=== PATIENT | female | born 1975 | race Caucasian/White ===

== ENCOUNTER 2024-10-13 08:12 | Emergency (ER) | payer OTHER, SELFPAY ==
[2024-10-13 08:14] VITALS: BP 128/79
--- NOTE | 2024-10-13 08:46 | ED.GENMED ---
History of Present Illness
General
Chief Complaint: Cold/Flu/URI Symptoms
Source: patient
Exam Limitations: none
Time Seen by Provider: 10/13/24 08:28
Nursing documentation reviewed up to this point in time: agreed with
History of Present Illness
History of Present Illness:
The patient is a pleasant 49-year-old female who reports at least 1 week of cough, body aches, intermittent low-grade fever, fatigue, and nausea. Patient reports that she vomited 1-2 times but has not vomited in several days. Additionally she
reports mild nonbloody diarrhea. She denies abdominal pain. Patient reports what concerned her was her labored breathing, which she reports feels like it is getting worse. Patient reports occasionally she feels herself wheezing. She reports that
multiple family members have the flu but they all seem to be getting better and she is not getting better. Patient also feels slightly lightheaded.
Past History
Past History
ED Past Medical History: Hypothyroidism and Psychiatric (Depression)
ED Past Surgical History: Cholecystectomy
Social History
Tobacco: Smoker
Alcohol: None
Drug: None
Personal:
Living: with family
Employment: Other
Family History
Family History: Hypertension
Review of Systems
Review of Systems
Allergies reviewed?: Yes
All Other Systems: ROS reviewed and negative except as documented in HPI and ROS
Constitutional: Reports fever, fatigue and chills
EENT: Reports no symptoms
Respiratory: Reports cough and trouble breathing
Cardiac: Reports no symptoms
ABD/GI: Reports nausea, vomiting, diarrhea and anorexia
: Reports no symptoms
Musculoskeletal: Reports muscle pain
Skin: Reports no symptoms
Neurological: Reports no symptoms
Endocrine: Reports no symptoms
Hematologic/Lymphatic: Reports no symptoms
Psychiatric: Reports no symptoms
Phy Exam
Physical Exam
Physical Exam:
Physical Exam
General: no apparent distress, not acutely ill
Neck: supple. no meningeal signs. No pharyngeal erythema or exudate. Dry mucous membrane
Heart: s1/s2 regular rate and rhythm, no murmur. equal radial pulses.
Lungs: Mild tachypnea with speaking. Bilateral rhonchi. No crackles heard or wheezing
Abdomen: normal bowel sounds. not tender. no CVAT
Neuro: alert and oriented. no focal neurological deficits
Skin: no rash
Psychiatric: well kept. interactive and cooperative
Extremities: no edema. no calf tenderness. negative homans. good distal pulses
Course
Orders/Labs/Results
Orders:
Orders
10/13/24 08:17
COVID-19 Antigen Urgent
Source: Nasal Swab
Influenza A+B Rapid Molecular Urgent
CANDIDO Source: Nasal Swab
Specimen Description:
10/13/24 08:45
0.9% Sodium Chloride 1000 ml [Nss] 1,000 ml IV BOLUS
10/13/24 08:46
Ipratropium/Albuterol Sulfate [Duoneb] 3 ml INH R NOW ONE
CR Chest - 2 Views Urgent
Comment:
Reason For Exam: SOB
10/13/24 08:49
Basic Metabolic Panel Urgent
Complete Blood Count/With Diff Urgent
10/13/24 09:06
Add On- LAB Urgent
Tests Added?: monotest
10/13/24 09:33
Monotest Urgent
10/13/24 10:34
Prednisone [Deltasone] 40 mg PO NOW STA
10/13/24 11:49
Azithromycin [Zithromax] 500 mg PO NOW STA
Abnormal Lab Results
10/13/24
08:49
WBC 15.0 H 10^3/uL
(4.8-10.8)
Abs Immat Gran (auto) 0.1 H 10^3/uL
(0-0.05)
Absolute Neuts (auto) 12.5 H 10^3/uL
(1.4-6.5)
Absolute Monos (auto) 0.8 H 10^3/uL
(0.1-0.6)
Neutrophils % 83.4 H %
(42.2-75.2)
Lymphocytes % 10.5 L %
(20.5-51.1)
Chloride 108 H mmol/L
(98-107)
Carbon Dioxide 19 L mmol/L
(22-30)
BUN 4 L mg/dl
(7-17)
Glucose 111 H mg/dl
(70-99)
10/13/24 08:49
10/13/24 08:49
Vital Signs
Initial and Last Documented VS:
Initial Vital Signs
Temp Pulse Resp BP Pulse Ox
98.9 F 72 16 128/79 100
10/13/24 08:14 10/13/24 08:14 10/13/24 08:14 10/13/24 08:14 10/13/24 08:14
Last Documented Vital Signs
Temp Pulse Resp BP Pulse Ox
98.9 F 55 16 119/74 100
10/13/24 08:14 10/13/24 10:15 10/13/24 10:15 10/13/24 10:15 10/13/24 10:15
MDM/Problems Addressed
Differential Diagnosis Includes:
Acute viral illness such as influenza, pneumonia, PE
MDM/Problems Addressed:
Patient presents with acute fatigue, cough and shortness of breath
Chronic conditions affecting care:
Given patient has a history of smoking, she is at increased risk of lung disease such as pneumonia
Acute Exacerbation and/or Progression of Chronic Illness: HTN (Patient is acutely hypertensive, likely due to not feeling well and shortness of breath)
*Radiology
Radiology exam reviewed: preliminary read by ED provider (Chest x-ray reviewed by me. No acute disease) and radiology read reviewed
*Pulse Oximetry
Patient hypoxic: no
*EKG
Interpreted by ED Provider?: NA
*On Line Csr Interpretation
Rate: On Line Csr- N/A
*Critical Care Note
Total Time (30-74mins, 75-104mins- exclusive of procedures): Not Applicable
Data Reviewed
Source: patient
Update Note
Update Note:
11:30 AM patient feels better after DuoNeb. Given patient is a daily smoker for many years and has increased cough productive of mucus, decision made to start azithromycin and prednisone.
ED Attending Note
-
Portions of this chart may have been created with voice recognition software.� Occasional wrong word or��sound alike� substitutions may have occurred due to the inherent limitations of voice recognition software.
Discharge Plan
Departure
Patient Disposition: Home (Routine Discharge)
Date of Disposition: 10/13/24
Time of Disposition: 11:44
Patient with high blood pressure during this ER visit?: No
Condition: Good
Covid-19: Negative COVID-19
Discharge Problem:
Acute bronchitis
Instructions: Acute Bronchitis, Adult (DC)
Prescriptions:
New
prednisone 10 mg tablet
10 mg PO DIRECTED 7 Days Qty: 16 0RF
Rx Instructions:
Take 40 mg on day 1
Take 30 mg on day 2 and 3
Take 20 mg on day 4 and 5
Take 10 mg on day 6 and 7
azithromycin [Zithromax] 250 mg tablet
250 mg PO DAILY Qty: 4 0RF
albuterol sulfate 90 mcg/actuation aerosol powdr breath activated
1 inh inhalation Q4H PRN (Reason: shortness of breath or wheezing) Qty: 1 0RF
No Action
zolpidem 10 MG tablet
10 mg PO HS PRN (Reason: insomnia)
levothyroxine 200 MCG tablet
200 mcg PO DAILY
multivitamin [Daily Multiple] 1 EACH tablet
1 ea PO DAILY
quetiapine 100 MG tablet
400 mg PO HS
nortriptyline 50 MG capsule
150 mg PO BID
pantoprazole 40 MG tablet,delayed release (DR/EC)
40 mg PO BID Qty: 14 0RF
cyanocobalamin (vitamin B-12) 1,000 MCG tablet
1,000 mcg PO DAILY Qty: 30 0RF
Referrals:
UNKNOWN - PT NOT,INTERVIEWE [Family Provider] -
Interventions
Interventions:
*Risk Screen - Suicide Last Done: 10/13/24 08:15
*General Assessment Last Done: 10/13/24 09:03
*Neglect/Abuse Screening Last Done: 10/13/24 08:15
ED- Pulmonary Assessment Last Done: 10/13/24 09:03
Discharge Date and Time
Print Language: EMIRATI
[2024-10-13 08:47] LABS: COVID-19 Antigen Negative (Negative)
[2024-10-13] MEDS: DUONEB 3 ML INH (08:58)
[2024-10-13] MEDS: NSS 1000 IV (08:58)
[2024-10-13 09:06] LABS: % Basophils 0.3 % (0-2); % Eosinophils 0.1 % (0-6); % Immature Granulocytes 0.4 % (0-0.5); % Lymphocytes 10.5 % (20.5-51.1); % Monocytes 5.3 % (1.7-9.3); % Neutrophils 83.4 % (42.2-75.2); Absolute Basophils 0.1 10^3/uL (0-0.2); Absolute Immature Granulocytes 0.1 10^3/uL (0-0.05); Absolute Lymphocytes 1.6 10^3/uL (1.2-3.4); Absolute Monocytes 0.8 10^3/uL (0.1-0.6); Absolute Neutrophils 12.5 10^3/uL (1.4-6.5); Hematocrit 40.7 % (37.0-47.0); Hemoglobin 14.1 g/dL (12.0-16.0); Mean Corp Hgb Conc. 34.6 g/dL (33.0-37.0); Mean Corpuscular Hgb 29.9 pg (27.0-31.0); Mean Corpuscular Volume 86.4 fL (81.0-99.0); Mean Platelet Volume 10.4 fL (7.4-10.4); Nucleated Red Blood Cells % 0 %; Platelet Count 363 10^3/uL (130-400); Red Blood Cell Count 4.71 10^6/uL (4.20-5.40); Red Cell Dist. Width 13.7 % (11.5-14.5)
[2024-10-13 09:43] LABS: Blood Urea Nitrogen 4 mg/dl (7-17); Calcium 9.1 mg/dl (8.4-10.2); Carbon Dioxide 19 mmol/L (22-30); Chloride 108 mmol/L (98-107); Glucose 111 mg/dl (70-99); Sodium 137 mmol/L (135-145); eGFR > 60.00
[2024-10-13 10:00] LABS: Monotest Negative (Negative)
[2024-10-13 10:15] VITALS: BP 119/74
[2024-10-13] MEDS: DELTASONE 40 MG PO (10:48)
[2024-10-13] MEDS: ZITHROMAX 500 MG PO (12:00)
== END 2024-10-13 12:45 | disposition home or self-care (01) ==
LOC: EMR 08:12
PROVIDERS: Emergency Medicine; EMERGENCY PHYSICIAN Emergency Medicine
DX: J20.9 Acute bronchitis, unspecified (principal); Z11.52 Encounter for screening for COVID-19; F17.200 Nicotine dependence, unspecified, uncomplicated
CPT/HCPCS: 99284; 96360; 94640; 71046; 80048; 85025; 86308; 87502; 87811

== ENCOUNTER 2025-02-20 08:02 | Emergency (ER) | payer OTHER, SELFPAY ==
[2025-02-20 08:10] VITALS: BP 125/65
--- NOTE | 2025-02-20 09:08 | ED.MUSCINJ ---
HPI-Injury
General
Chief Complaint: Fall
Source: patient
Exam Limitations: none
Time Seen by Provider: 02/20/25 08:56
History of Present Illness-Injury
Initial Injury comments:
49-year-old female presents 2 days after a fall she sustained. She slipped on the wet sidewalk and fell twisting both ankles while she did this and landed on her right hand. She complains of right wrist pain and bilateral ankle pain. She hit her
head. There is a small bump initially which has since resolved. There is no loss of conscious. She is not anticoagulated. She denies a headache or vision change. No neck pain.
Past History
Past History
ED Past Medical History: Hypothyroidism and Psychiatric (Depression)
ED Past Surgical History: Cholecystectomy
Social History
Tobacco: Smoker
Alcohol: None
Drug: None
Personal:
Living: with family
Employment: Other
Family History
Family History: Hypertension
Phy Exam
Physical Exam
Physical Exam:
General: Well-appearing female no acute respiratory distress
HEENT normocephalic atraumatic pupils equal round reactive to light
Musculoskeletal exam: The spine is nontender. The right wrist is diffusely tender ecchymosis over the volar aspect. Bilateral ankles are tender and slightly swollen laterally.
Neurologic: Alert and oriented
Injury Course
Orders/Labs/Results
Orders:
Orders
02/20/25 09:07
CR Ankle - Left Min 3 Views Urgent
Comment:
Reason For Exam: fall
CR Ankle - Right Min 3 Views * Urgent
Comment:
Reason For Exam: fall
CR Wrist - Right Min 3 Views Urgent
Comment:
Reason For Exam: pain after fall
02/20/25 10:57
Townsend Wrist Right-Tx ONCE
MDM/Problems Addressed
Differential Diagnosis Includes:
Mechanical fall with right wrist pain and bilateral ankle pain. Consider sprain versus fracture. There was a head strike but no sign of scalp hematoma neurologically intact no loss of conscious. No indication for imaging of the head
X-rays right wrist and bilateral ankles pending
*Pulse Oximetry
SaO2: 98
Oxygen Mode of Delivery: Room air
Patient hypoxic: no
*Critical Care Note
Total Time (30-74mins, 75-104mins- exclusive of procedures): Not Applicable
Update Note
Update Note:
X-rays both ankles and right wrist negative for acute fracture. Suspect sprain to the right wrist. Will apply Velcro wrist splint. Recommend ibuprofen and Tylenol for pain. Stable for discharge
ED Attending Note
-
Portions of this chart may have been created with voice recognition software.� Occasional wrong word or��sound alike� substitutions may have occurred due to the inherent limitations of voice recognition software.
Discharge Plan
Departure
Patient Disposition: Home (Routine Discharge)
Date of Disposition: 02/20/25
Time of Disposition: 10:59
Patient with high blood pressure during this ER visit?: No
Discharge Problem:
Right wrist sprain
Instructions: Muscle, joint, and bone pain - Discharge instructions
Prescriptions:
New
meloxicam 7.5 mg tablet
7.5 mg PO BID Qty: 14 0RF
No Action
zolpidem 10 MG tablet
10 mg PO HS PRN (Reason: insomnia)
levothyroxine 200 MCG tablet
200 mcg PO DAILY
multivitamin [Daily Multiple] 1 EACH tablet
1 ea PO DAILY
quetiapine 100 MG tablet
400 mg PO HS
nortriptyline 50 MG capsule
150 mg PO BID
pantoprazole 40 MG tablet,delayed release (DR/EC)
40 mg PO BID Qty: 14 0RF
cyanocobalamin (vitamin B-12) 1,000 MCG tablet
1,000 mcg PO DAILY Qty: 30 0RF
prednisone 10 mg tablet
10 mg PO DIRECTED 7 Days Qty: 16 0RF
Rx Instructions:
Take 40 mg on day 1
Take 30 mg on day 2 and 3
Take 20 mg on day 4 and 5
Take 10 mg on day 6 and 7
azithromycin [Zithromax] 250 mg tablet
250 mg PO DAILY Qty: 4 0RF
albuterol sulfate 90 mcg/actuation aerosol powdr breath activated
1 inh inhalation Q4H PRN (Reason: shortness of breath or wheezing) Qty: 1 0RF
Referrals:
Allyson Cain DO [Family Provider, Family Practice]
Activity Restrictions/Additional Instructions:
Use brace for support. Take anti-inflammatories as directed. Return if needed otherwise follow-up with your doctor
Interventions
Interventions:
*Risk Screen - Suicide Last Done: 02/20/25 08:54
*General Assessment Last Done: 02/20/25 08:54
*Neglect/Abuse Screening Last Done: 02/20/25 08:54
*ED- Fall Risk Assessment Last Done: 02/20/25 08:54
*ED COVID-19 Vaccine History Last Done: 02/20/25 08:54
ED-Musculoskeletal Assessment Last Done: 02/20/25 08:54
ED- Neurological Assessment Last Done: 02/20/25 08:54
ED-Skin Assessment Last Done: 02/20/25 08:54
Discharge Date and Time
Print Language: BURMESE
[2025-02-20 11:10] VITALS: BP 99/69
== END 2025-02-20 11:28 | disposition home or self-care (01) ==
LOC: EMR 08:02
PROVIDERS: EMERGENCY PHYSICIAN Student in an Organized Health Care Education/Training Program; FAMILY PHYSICIAN Family Medicine
DX: S63.501A Unspecified sprain of right wrist, initial encounter (principal); S99.911A Unspecified injury of right ankle, initial encounter; S99.912A Unspecified injury of left ankle, initial encounter; W01.0XXA Fall on same level from slipping, tripping and stumbling without subsequent striking against object, initial encounter; E03.9 Hypothyroidism, unspecified; F32.A Depression, unspecified; F17.200 Nicotine dependence, unspecified, uncomplicated; Z82.49 Family history of ischemic heart disease and other diseases of the circulatory system; Z90.49 Acquired absence of other specified parts of digestive tract
CPT/HCPCS: 99283; 73110; 73610

== ENCOUNTER 2025-02-28 09:00 | Emergency (ER) | payer OTHER, SELFPAY ==
[2025-02-28 09:02] VITALS: BP 112/76
--- NOTE | 2025-02-28 09:27 | ED.GENMED ---
History of Present Illness
General
Chief Complaint: Musculo-Skeletal Complaint
Source: patient
Time Seen by Provider: 02/28/25 09:20
History of Present Illness
History of Present Illness:
49-year presents the emergency room complaining of pain in the top of her left foot. Patient fell couple weeks ago and injured both her right wrist and both ankles in the fall. She was seen here on February 21 and had imaging of both ankles and her
right wrist which showed no fracture. The patient states she was following her instructions and her ankles were improving until last night when she developed sharp pain in the top of her left foot. The pain seems to come in waves. Movement of the
foot does seem to make it worse. She does not recall any new injuries. She has not been doing increased activity such as running. She is taken some Tylenol and ibuprofen for the discomfort.
Past History
Past History
ED Past Medical History: Hypothyroidism and Psychiatric (Depression)
ED Past Surgical History: Cholecystectomy
Social History
Tobacco: Smoker
Alcohol: None
Drug: None
Personal:
Living: with family
Employment: Other
Family History
Family History: Hypertension
Phy Exam
Physical Exam
Physical Exam:
General: Awake, Alert, Oriented X3. No acute distress.
Vitals: unremarkable
Head: Atraumatic
Eyes: Pupils equal, EOMI
Neuro: Grossly nonfocal
Skin: Warm, dry, no rash
Extremities: pulses equal b/l, no edema. Left foot shows no swelling, color changes, ecchymosis or rash. Tenderness exists in the proximal foot. No masses or any unusual structures on palpation. Pulses are intact. Cap refill is brisk.
Course
Orders/Labs/Results
Orders:
Orders
02/28/25 09:30
Foot, Left 3 View [CR Foot - Left Min 3 Views] Urgent
Comment:
Reason For Exam: foot pain
US Legs, Left [US Periph Venous LOWER Ext LT] Urgent
Comment:
Reason For Exam: left foot/lower leg pain
02/28/25 09:31
Ibuprofen [Motrin] 600 mg PO NOW STA
02/28/25 12:15
Acetaminophen [Tylenol] 1,000 mg PO NOW STA
02/28/25 12:18
Kayden Wrap Left-Treatment ONCE
Vital Signs
Initial and Last Documented VS:
Initial Vital Signs
Temp Pulse Resp BP Pulse Ox
98 F 96 16 112/76 100
02/28/25 09:02 02/28/25 09:02 02/28/25 09:02 02/28/25 09:02 02/28/25 09:02
Last Documented Vital Signs
Temp Pulse Resp BP Pulse Ox
98 F 96 16 112/76 100
02/28/25 09:02 02/28/25 09:02 02/28/25 09:02 02/28/25 09:02 02/28/25 09:30
MDM/Problems Addressed
Differential Diagnosis Includes:
Tendinitis, ankle sprain, DVT
MDM/Problems Addressed:
Patient's imaging is unremarkable including it DVT study. Physical exam does not suggest any significant pathology. Suspect the patient either continually have pain from the injury or maybe developed a bit of a tendinitis because of change in her
gait. Continue Tylenol and ibuprofen. Patient requested stronger pain medicine but given her negative imaging study and physical exam I do not believe opiate analgesia is appropriate. She can follow-up with her primary care provider.
*Radiology
Radiology exam reviewed: radiology read reviewed
*Pulse Oximetry
SaO2: 100
Oxygen Mode of Delivery: Room air
Patient hypoxic: no
*Critical Care Note
Total Time (30-74mins, 75-104mins- exclusive of procedures): Not Applicable
ED Attending Note
-
Portions of this chart may have been created with voice recognition software.� Occasional wrong word or��sound alike� substitutions may have occurred due to the inherent limitations of voice recognition software.
Discharge Plan
Departure
Patient Disposition: Home (Routine Discharge)
Date of Disposition: 02/28/25
Time of Disposition: 12:15
Patient with high blood pressure during this ER visit?: No
Condition: Good
Discharge Problem:
Ankle pain, left, Strain of ankle, left
Instructions: Sprain (DC)
Prescriptions:
No Action
zolpidem 10 MG tablet
10 mg PO HS PRN (Reason: insomnia)
levothyroxine 200 MCG tablet
200 mcg PO DAILY
multivitamin [Daily Multiple] 1 EACH tablet
1 ea PO DAILY
quetiapine 100 MG tablet
400 mg PO HS
nortriptyline 50 MG capsule
150 mg PO BID
pantoprazole 40 MG tablet,delayed release (DR/EC)
40 mg PO BID Qty: 14 0RF
cyanocobalamin (vitamin B-12) 1,000 MCG tablet
1,000 mcg PO DAILY Qty: 30 0RF
prednisone 10 mg tablet
10 mg PO DIRECTED 7 Days Qty: 16 0RF
Rx Instructions:
Take 40 mg on day 1
Take 30 mg on day 2 and 3
Take 20 mg on day 4 and 5
Take 10 mg on day 6 and 7
azithromycin [Zithromax] 250 mg tablet
250 mg PO DAILY Qty: 4 0RF
albuterol sulfate 90 mcg/actuation aerosol powdr breath activated
1 inh inhalation Q4H PRN (Reason: shortness of breath or wheezing) Qty: 1 0RF
meloxicam 7.5 mg tablet
7.5 mg PO BID Qty: 14 0RF
Referrals:
Jacek Landeros MD [Active, Orthopedics]
Allyson Cain DO [Family Provider, Family Practice]
Interventions
Interventions:
*Risk Screen - Suicide Last Done: 02/28/25 09:04
*General Assessment Last Done: 02/28/25 12:28
*Neglect/Abuse Screening Last Done: 02/28/25 09:04
*ED COVID-19 Vaccine History Last Done: 02/28/25 12:28
*Nursing Disposition Last Done: 02/28/25 12:34
ED-Musculoskeletal Assessment Last Done: 02/28/25 12:28
Discharge Date and Time
Discharge Date/Time: 02/28/25 12:35
Print Language: BENGALI
[2025-02-28] MEDS: MOTRIN 600 MG PO (09:40)
== END 2025-02-28 12:35 | disposition home or self-care (01) ==
LOC: EMR 09:00
PROVIDERS: EMERGENCY PHYSICIAN Emergency Medicine; FAMILY PHYSICIAN Family Medicine
DX: S96.912A Strain of unspecified muscle and tendon at ankle and foot level, left foot, initial encounter (principal); M25.572 Pain in left ankle and joints of left foot; M79.605 Pain in left leg; W19.XXXA Unspecified fall, initial encounter; E03.9 Hypothyroidism, unspecified; F32.A Depression, unspecified; F17.200 Nicotine dependence, unspecified, uncomplicated; Z90.49 Acquired absence of other specified parts of digestive tract; Z88.2 Allergy status to sulfonamides; Z88.8 Allergy status to other drugs, medicaments and biological substances
CPT/HCPCS: 99284; 73630; 93971

== ENCOUNTER 2025-06-20 08:32 | Emergency (ER) | payer OTHER, SELFPAY ==
[2025-06-20 08:35] VITALS: BP 114/72
[2025-06-20 08:56] VITALS: BMI 26.0
[2025-06-20 09:02] VITALS: BP 112/67
[2025-06-20 09:28] LABS: Hematocrit 37.9 % (37.0-47.0); Hemoglobin 12.3 g/dL (12.0-16.0); Mean Corp Hgb Conc. 32.5 g/dL (33.0-37.0); Mean Corpuscular Volume 93.6 fL (81.0-99.0); Nucleated Red Blood Cells % 0 %; Platelet Count 280 10^3/uL (130-400); Red Cell Dist. Width 14.3 % (11.5-14.5)
[2025-06-20] MEDS: NSS 1000 IV (09:28)
[2025-06-20] MEDS: TORADOL 15 MG IV (09:35)
[2025-06-20 09:56] LABS: Troponin I 0.018 ng/ml
[2025-06-20 10:00] VITALS: BP 110/75
[2025-06-20 10:28] LABS: Blood Urea Nitrogen 7 mg/dl (7-17); Calcium 7.5 mg/dl (8.4-10.2); Carbon Dioxide 21 mmol/L (22-30); Chloride 115 mmol/L (98-107); Estimated Creatinine Clearance > 125 ml/min; Glucose 64 mg/dl (70-99); Sodium 135 mmol/L (135-145); eGFR > 60.00
[2025-06-20 11:00] VITALS: BP 115/79
--- NOTE | 2025-06-20 11:40 | ED.GENMED ---
History of Present Illness
General
Chief Complaint: Chest Pain
Source: patient
Time Seen by Provider: 06/20/25 08:45
History of Present Illness
History of Present Illness:
See MDM
Past History
Past History
ED Past Medical History: Hypothyroidism and Psychiatric (Depression)
ED Past Surgical History: Cholecystectomy
Social History
Tobacco: Smoker
Alcohol: None
Drug: None
Personal:
Living: with family
Employment: Other
Family History
Family History: Hypertension
Phy Exam
Physical Exam
Physical Exam:
See MDM
Scores
Heart Score for Chest Pain Patients
STEMI patient?: No
History: Slightly or Non-Suspicious
ECG: Normal
Age: >45 - <65 years
Risk Factors: No Risk Factors
Troponin: </= Normal Limit
Heart Score for Chest Pain Patients: 1
Heart Score Risk: 2.5% MACE over next 6 weeks
Course
Orders/Labs/Results
Orders:
Orders
06/20/25 08:34
Electrocardiogram (*1) Urgent
Reason for Study: Chest Pain
EKG- Treatment ONCE
06/20/25 08:52
0.9% Sodium Chloride 1000 ml [Nss] 1,000 ml IV BOLUS
CR Chest - 2 Views Urgent
Comment:
Reason For Exam: chest pain
06/20/25 09:01
Complete Blood Count/With Diff Urgent
Free T4 Urgent
TSH Reflex To Free T4 Urgent
Troponin I Urgent
06/20/25 09:31
Ketorolac [Toradol] 15 mg IV NOW STA
06/20/25 09:58
Basic Metabolic Panel Urgent
Abnormal Lab Results
06/20/25 06/20/25
09:01 09:58
RBC 4.05 L 10^6/uL
(4.20-5.40)
MCHC 32.5 L g/dL
(33.0-37.0)
MPV 11.3 H fL
(7.4-10.4)
Chloride 115 H mmol/L
(98-107)
Carbon Dioxide 21 L mmol/L
(22-30)
Glucose 64 L mg/dl
(70-99)
Calcium 7.5 L mg/dl
(8.4-10.2)
TSH (Reflex) 21.50 H uIU/ml
(0.47-4.68)
Free T4 0.47 L ng/dl
(0.78-2.19)
06/20/25 09:01
06/20/25 09:58
Vital Signs
Initial and Last Documented VS:
Initial Vital Signs
Temp Pulse Resp BP Pulse Ox
98.0 F 60 18 114/72 99
06/20/25 08:35 06/20/25 08:35 06/20/25 08:35 06/20/25 08:35 06/20/25 08:35
Last Documented Vital Signs
Temp Pulse Resp BP Pulse Ox
98.0 F 47 14 115/79 100
06/20/25 08:35 06/20/25 11:15 06/20/25 11:15 06/20/25 11:00 06/20/25 11:15
MDM/Problems Addressed
Differential Diagnosis Includes:
Note:
CHIEF COMPLAINT(S)
Chest pain
HISTORY OF PRESENT ILLNESS
The patient is a 50-year-old female who presented with chest discomfort. She described the pain as pressure-like, stating it felt like 'somebody sitting on it,' localized in the middle of the chest and radiating up both arms. She reported the
symptoms began a couple of days ago but denied any recent travel or history of clot formation. The patient did not experience increased pain with walking or deep breaths, and she noted no leg swelling or pain. Additionally, the patient mentioned
having a known hiatal hernia and expressed having jaw tightness and difficulties when swallowing. The patient also stated she is allergic to thyroid medications and that vitamin D levels are not an acute concern in this context.
PHYSICAL EXAM
General: Alert, no acute distress.
Skin: Warm, dry.
Head: Normocephalic, atraumatic
Neck: Appears supple, trachea midline.
Eyes, Ears, Nose, Mouth, and Throat: Moist mucous membranes
Cardiovascular: No signs of cyanosis. Regular rate and rhythm
Respiratory: Respirations are non-labored. Lungs clear
Abdomen: Non-distended
Musculoskeletal: No deformities. No leg edema
Neurological: No focal neurological deficit observed.
Psychiatric: Cooperative, appropriate mood and affect.
ELECTROCARDIOGRAM (EKG)
My independent EKG interpretation is normal findings with no abnormalities detected.
PLAN
- Conduct blood work to rule out cardiac causes and check electrolytes.
- Conduct a chest x-ray to ensure no other underlying conditions.
- Administer intravenous fluids for dehydration.
- Administer a dose of 1 mg of hydromorphone, as previous morphine administration was ineffective.
DIFFERENTIAL DIAGNOSIS
The Differential Diagnosis includes, in no particular order and is not limited to:
- Cardiac ischemia
- Gastroesophageal reflux disease (GERD)
- Musculoskeletal chest pain
- Panic attack or anxiety-related symptoms
- Costochondritis
- Pulmonary embolism
- Aortic dissection
- Pneumonia
- Pericarditis
- Hiatal hernia exacerbation
SUMMARY OF ENCOUNTER
The patient presented to the emergency department with pressure-like chest pain radiating to the arms. EKG was interpreted as normal. To rule out any cardiac-related issues, further tests such as blood work and chest x-ray were planned. Due to
insufficient relief from morphine, a dose of hydromorphone was administered for pain management, and intravenous fluids were provided to address mild dehydration.
EMERGENCY TREATMENTS ADMINISTERED
A dose of 1 mg of hydromorphone intravenous for pain relief.
MEDICATION RECONCILIATION
- Hydromorphone 1 mg intravenous administered due to ineffective pain control with morphine.
MEDICAL DECISION MAKING
-Complexity of Data Reviewed: Chronic conditions affecting care: Hiatal hernia.
-Data:
Category 1:
EKG independently interpreted, revealing normal results.
Category 3:
Overall management and test interpretation guided by presenting symptoms, with the administration of intravenous fluids and pain medication.
-Risk:
Consideration of Admission/Observation: Escalation of care including admission/observation was considered given the complexity and risk of the patients presenting complaint, exam findings, and/or their underlying comorbidities. However, ultimately I
feel the patient is safe for outpatient management with close follow-up. Reasoning: Work-up reassuring, does not reveal any acute life/organ threatening processes, patients symptoms well controlled upon reevaluation, reexamination is reassuring,
vitals are stable, patient agreeable with discharge, reliable for follow-up.
DIAGNOSIS
- Hiatal Hernia (ICD-10: K44.9)
- Chest Pain, unspecified (ICD-10: R07.9)
EKG
My independent EKG interpretation is:
- Rhythm: Sinus bradycardia
- Heart Rate: 57 beats per minute
- [place]: Normal
- Abnormalities: No ST segment elevation noted
SUMMARY OF ENCOUNTER
The patient presented with chest discomfort. An EKG was performed, showing no ischemic changes, and a troponin test was negative. These results, combined with the duration of symptoms, reduced the suspicion of acute coronary syndrome. Laboratory
tests revealed some abnormalities, including low T3, mild hypoglycemia, and mildly low calcium levels. The importance of following up on these results with her primary care physician, who manages her hypothyroidism, was discussed. The patient
declined food in the emergency department, preferring to wait until she returned home. Recommendations for uhsy-aeo-spevkox calcium supplements were also discussed.
PLAN
The patient was advised to follow up with her primary care physician for further evaluation and management of her thyroid condition and to discuss the lab results.
INDEPENDENT REVIEW OF LABS AND INTERPRETATION OF TESTS
My independent review of the laboratory results indicated low T3, mild hypoglycemia, and mildly low calcium levels.
PATIENT EDUCATION AND COUNSELING
Patient was educated on the importance of discussing lab abnormalities with her primary care provider, especially in relation to her hypothyroidism management. Discussed the potential benefit of ubnr-wfr-kyrnagu calcium supplements.
FOLLOW-UP INSTRUCTIONS
Patient advised to schedule a follow-up visit with her primary care physician to address thyroid management and review lab results.
MEDICATION RECONCILIATION
Klat-doi-yxvffra calcium supplements were recommended to the patient.
MEDICAL DECISION MAKING
-Complexity of Data Reviewed: Chronic conditions affecting care include the patients known hypothyroidism. Differential diagnoses considered include cardiac ischemia, gastroesophageal reflux disease (GERD), and a hiatal hernia exacerbation.
-Data:
Category 1
My independent interpretation of EKG indicates no ischemic changes.
My independent review of lab tests showed low T3, mild hypoglycemia, and mildly low calcium.
-Discussion of lab results with the patient regarding abnormalities.
-Risk: Consideration of Admission/Observation: Escalation of care, including admission/observation, was considered, but ultimately, the patient is deemed safe for outpatient management with close follow-up. Work-up does not reveal any acute
life-threatening processes, symptoms are well controlled upon reevaluation, and the patient is stable and agreeable with discharge.
DIAGNOSIS
- Hypothyroidism (ICD-10: E03.9)
- Chest Pain, unspecified (ICD-10: R07.9)
*Pulse Oximetry
SaO2: 100
Oxygen Mode of Delivery: Room air
Patient hypoxic: no
*Critical Care Note
Total Time (30-74mins, 75-104mins- exclusive of procedures): Not Applicable
ED Attending Note
-
Portions of this chart may have been created with voice recognition software.� Occasional wrong word or��sound alike� substitutions may have occurred due to the inherent limitations of voice recognition software.
Discharge Plan
Departure
Patient Disposition: Home (Routine Discharge)
Date of Disposition: 06/20/25
Time of Disposition: 11:43
Patient with high blood pressure during this ER visit?: No
Discharge Problem:
Chest discomfort, Hypocalcemia, Hypoglycemia
Instructions: Chest Pain That Is Not Caused by the Heart (DC)
Prescriptions:
No Action
zolpidem 10 MG tablet
10 mg PO HS PRN (Reason: insomnia)
levothyroxine 200 MCG tablet
200 mcg PO DAILY
multivitamin [Daily Multiple] 1 EACH tablet
1 ea PO DAILY
quetiapine 100 MG tablet
400 mg PO HS
nortriptyline 50 MG capsule
150 mg PO BID
pantoprazole 40 MG tablet,delayed release (DR/EC)
40 mg PO BID Qty: 14 0RF
cyanocobalamin (vitamin B-12) 1,000 MCG tablet
1,000 mcg PO DAILY Qty: 30 0RF
prednisone 10 mg tablet
10 mg PO DIRECTED 7 Days Qty: 16 0RF
Rx Instructions:
Take 40 mg on day 1
Take 30 mg on day 2 and 3
Take 20 mg on day 4 and 5
Take 10 mg on day 6 and 7
azithromycin [Zithromax] 250 mg tablet
250 mg PO DAILY Qty: 4 0RF
albuterol sulfate 90 mcg/actuation aerosol powdr breath activated
1 inh inhalation Q4H PRN (Reason: shortness of breath or wheezing) Qty: 1 0RF
meloxicam 7.5 mg tablet
7.5 mg PO BID Qty: 14 0RF
Referrals:
Allyson Cain DO [Family Provider, Family Practice]
Activity Restrictions/Additional Instructions:
Please return for any worsening symptoms.
You may return at any time if you have further concerns.
Please follow up with your doctor at the first available appointment, preferably this week. Please bring your blood work and discussed the lab abnormalities.
Thank you for choosing [facility].
Interventions
Interventions:
*Risk Screen - Suicide Last Done: 06/20/25 08:35
*General Assessment Last Done: 06/20/25 08:35
*Neglect/Abuse Screening Last Done: 06/20/25 08:35
*ED- Fall Risk Assessment Last Done: 06/20/25 08:35
*ED COVID-19 Vaccine History Last Done: 06/20/25 08:35
*ED Influenza Vaccine History Last Done: 06/20/25 08:35
ED- Cardiac Assessment Last Done: 06/20/25 08:56
Discharge Date and Time
Print Language: FRENCH
== END 2025-06-20 11:50 | disposition home or self-care (01) ==
LOC: EMR 08:32
PROVIDERS: EMERGENCY PHYSICIAN Student in an Organized Health Care Education/Training Program; FAMILY PHYSICIAN Family Medicine
DX: R07.9 Chest pain, unspecified (principal); E83.51 Hypocalcemia; E16.A1 Hypoglycemia level 1; E86.0 Dehydration; R00.1 Bradycardia, unspecified; E03.9 Hypothyroidism, unspecified; F32.A Depression, unspecified; K44.9 Diaphragmatic hernia without obstruction or gangrene; F17.200 Nicotine dependence, unspecified, uncomplicated
CPT/HCPCS: 99284; 96374; 71046; 80048; 84439; 84443; 84484; 85025; 93005

== ENCOUNTER 2025-07-20 17:19 | Emergency (ER) | payer OTHER, SELFPAY ==
[2025-07-20] VITALS (7 sets, daily range): BP systolic 108–126; BP diastolic 59–82; BMI 28.1
--- NOTE | 2025-07-20 17:48 | ED.GENMED ---
History of Present Illness
<DESI Cool - Last Filed: 07/20/25 23:09>
General
Chief Complaint: Chest Pain
Source: patient and spouse
Exam Limitations: none
Time Seen by Provider: 07/20/25 17:35
Nursing documentation reviewed up to this point in time: agreed with
History of Present Illness
History of Present Illness:
Patient is a 50-year-old female history of depression hypothyroidism presents for evaluation. reports that patient has not been able to sleep and been very anxious for the past several days he has noticed that she is confused. She seems to
be forgetting words and forgetting things. In addition her gait seems a little unsteady. Patient presents tearful poor historian. She is awake alert and oriented x 3 here. She denies any headache .
She denies any chest pain fever chills shortness of breath. She does feel 'body pain all over. ' She is on Valium 10 mg 4 times a day as needed hydroxyzine also 4 times a day as needed. Other medications include doxepin and Ambien and
levothyroxine. she is followed by her family doctor as well as her psychiatrist.
Patient does smoke but denies any alcohol use.
Past History
<DESI Cool - Last Filed: 07/20/25 23:09>
Past History
ED Past Medical History: Hypothyroidism and Psychiatric (Depression)
ED Past Surgical History: Cholecystectomy
Social History
Tobacco: Smoker
Alcohol: None
Drug: None
Personal:
Living: with family
Employment: Other
Family History
Family History: Hypertension
Phy Exam
<DESI Cool - Last Filed: 07/20/25 23:09>
General Physical Exam
General Presentation: no apparent distress
General age: appears stated age
General Skin: warm and dry
General Habitus: normal
General Mental: anxious
General Hydration: appears well hydrated
Cardiovascular Exam
Cardiovascular Exam: regular rate/rhythm, no murmur and normal peripheral pulses
Pulmonary Exam
Pulmonary Exam: lungs clear and no respiratory distress
Neurological Exam
Neurological Exam: alert and oriented x3
Musculoskeletal Exam
Musculoskeletal Exam: full ROM
Skin Exam
Skin Exam: normal color and warm/dry
Psychiatric Exam
Psychiatric Exam: anxious and other (Anxious restless yelling)
Scores
<DESI Cool - Last Filed: 07/20/25 23:09>
Heart Score for Chest Pain Patients
STEMI patient?: Not applicable
Course
<EDSI Cool - Last Filed: 07/20/25 23:09>
Orders/Labs/Results
Orders:
Orders
07/20/25 17:21
EKG [Electrocardiogram (*1)] Urgent
Reason for Study: Chest Pain
EKG- Treatment ONCE
07/20/25 18:05
0.9% Sodium Chloride 1000 ml [Nss] 1,000 ml IV BOLUS
Test Result ONCE
07/20/25 18:24
Lorazepam [Ativan] 2 mg IV NOW STA
07/20/25 18:26
Nicotine [Nicoderm Transdermal] 21 mg TRANSDERM ONCE ONE
07/20/25 18:28
CT Head & Neck Angio W/wo IV Urgent
Comment:
Reason For Exam: change in ms
07/20/25 18:38
Complete Blood Count/With Diff Urgent
Comprehensive Metabolic Panel Urgent
HCG, Serum Qualitative Screen Urgent
TSH Reflex To Free T4 Urgent
07/20/25 19:03
Drug Screen, Urine [Urine Drug Abuse Screen] Urgent
Date Specimen was Collected: 07/20/25
Time Specimen was Collected: 18:55
Fentanyl, Urine Urgent
UA Reflex to Culture [Urinalysis Reflex To Culture] Urgent
Date Specimen was Collected: 07/20/25
Time Specimen was Collected: 18:55
07/20/25 19:31
Lorazepam [Ativan] 2 mg IV NOW STA
07/20/25 19:57
Haloperidol Lactate [Haldol] 2.5 mg IV NOW STA
Abnormal Lab Results
07/20/25 07/20/25
18:38 19:03
RBC 3.74 L 10^6/uL
(4.20-5.40)
Hgb 11.0 L g/dL
(12.0-16.0)
Hct 32.5 L %
(37.0-47.0)
RDW 15.1 H %
(11.5-14.5)
MPV 11.4 H fL
(7.4-10.4)
Absolute Monos (auto) 0.8 H 10^3/uL
(0.1-0.6)
Monocytes % 10.4 H %
(1.7-9.3)
Sodium 133 L mmol/L
(135-145)
BUN 5 L mg/dl
(7-17)
Creatinine 0.5 L mg/dL
(0.6-1.0)
AST 41 H U/L
(14-36)
U Benzodiazepines Scrn Positive H
(Negative)
07/20/25 18:38
07/20/25 18:38
Vital Signs
Initial and Last Documented VS:
Initial Vital Signs
Temp Pulse Resp BP Pulse Ox
98.2 F 94 16 126/78 95
07/20/25 17:22 07/20/25 17:22 07/20/25 17:22 07/20/25 17:22 07/20/25 17:22
Last Documented Vital Signs
Temp Pulse Resp BP Pulse Ox
98.3 F 75 18 108/59 98
07/20/25 21:33 07/20/25 22:47 07/20/25 22:47 07/20/25 22:47 07/20/25 22:47
Aws Architect consulted with Physician
Aws Architect consulted with physician?: Yes
Name of Physician Consulted: bharati
<Damian Munoz MD - Last Filed: 07/20/25 18:34>
Orders/Labs/Results
Orders:
Orders
07/20/25 17:21
EKG [Electrocardiogram (*1)] Urgent
Reason for Study: Chest Pain
EKG- Treatment ONCE
07/20/25 18:05
0.9% Sodium Chloride 1000 ml [Nss] 1,000 ml IV BOLUS
Test Result ONCE
07/20/25 18:24
Lorazepam [Ativan] 2 mg IV NOW STA
07/20/25 18:26
Nicotine [Nicoderm Transdermal] 21 mg TRANSDERM ONCE ONE
07/20/25 18:28
CT Head & Neck Angio W/wo IV Urgent
Comment:
Reason For Exam: change in ms
07/20/25 18:38
Complete Blood Count/With Diff Urgent
Comprehensive Metabolic Panel Urgent
HCG, Serum Qualitative Screen Urgent
TSH Reflex To Free T4 Urgent
07/20/25 19:03
Drug Screen, Urine [Urine Drug Abuse Screen] Urgent
Date Specimen was Collected: 07/20/25
Time Specimen was Collected: 18:55
Fentanyl, Urine Urgent
UA Reflex to Culture [Urinalysis Reflex To Culture] Urgent
Date Specimen was Collected: 07/20/25
Time Specimen was Collected: 18:55
07/20/25 19:31
Lorazepam [Ativan] 2 mg IV NOW STA
07/20/25 19:57
Haloperidol Lactate [Haldol] 2.5 mg IV NOW STA
Abnormal Lab Results
07/20/25 07/20/25
18:38 19:03
RBC 3.74 L 10^6/uL
(4.20-5.40)
Hgb 11.0 L g/dL
(12.0-16.0)
Hct 32.5 L %
(37.0-47.0)
RDW 15.1 H %
(11.5-14.5)
MPV 11.4 H fL
(7.4-10.4)
Absolute Monos (auto) 0.8 H 10^3/uL
(0.1-0.6)
Monocytes % 10.4 H %
(1.7-9.3)
Sodium 133 L mmol/L
(135-145)
BUN 5 L mg/dl
(7-17)
Creatinine 0.5 L mg/dL
(0.6-1.0)
AST 41 H U/L
(14-36)
U Benzodiazepines Scrn Positive H
(Negative)
07/20/25 18:38
07/20/25 18:38
Vital Signs
Initial and Last Documented VS:
Initial Vital Signs
Temp Pulse Resp BP Pulse Ox
98.2 F 94 16 126/78 95
07/20/25 17:22 07/20/25 17:22 07/20/25 17:22 07/20/25 17:22 07/20/25 17:22
Last Documented Vital Signs
Temp Pulse Resp BP Pulse Ox
98.3 F 75 18 108/59 98
07/20/25 21:33 07/20/25 22:47 07/20/25 22:47 07/20/25 22:47 07/20/25 22:47
<DESI Cool - Last Filed: 07/20/25 23:09>
MDM/Problems Addressed
MDM/Problems Addressed:
As documented patient is a 50-year-old female with anxiety depression on chronic Valium 10 mg 4 times a day with other medications including Ambien doxepin. Patient was brought by as she has been very anxious not sleeping having memory
issues. Pt presents extremely anxious very restless intermittently yelling. Patient however is oriented and answering questions appropriately. She is screaming that she' wants to sleep.' This is likely acute anxiety however as pleasant reports
that she was having difficulty getting her words out and forgetting words order CTA. Patient was eval by ED physician and required several doses of Ativan and Haldol to calm down. Urine is positive for benzos negative for patient is afebrile with
a normal white count stable hemoglobin unremarkable chemistries.
2245:CTA head and neck unremarkable. Patient resting comfortably finally has been able to rest to get some sleep. Offered crisis however patient declines crisis she says she is going to be able to get an appoint with her therapist tomorrow
also agrees. Patient wants to go home and sleep she is much more calmer and reasonable now. is comfortable with plan of care. Vitals are stable stable for discharge home.
<DESI Cool - Last Filed: 07/20/25 23:09>
*Radiology
Radiology exam reviewed: radiology read reviewed
*Pulse Oximetry
SaO2: 95
Oxygen Mode of Delivery: Room air
Patient hypoxic: no
*Critical Care Note
Total Time (30-74mins, 75-104mins- exclusive of procedures): Not Applicable
ED Attending Note
<DESI Cool - Last Filed: 07/20/25 23:09>
-
Portions of this chart may have been created with voice recognition software.� Occasional wrong word or��sound alike� substitutions may have occurred due to the inherent limitations of voice recognition software.
<Damian Munoz MD - Last Filed: 07/20/25 18:34>
ED Attending Note
Patient seen and examined by attending physician: Yes
ED Attending Note:
I have seen and evaluated the patient with a [id number] encounter. I have spoken to the advance practicer provider and involved in the medical history, the physical exam, medical decision making.
Evaluation and management service: agree unless noted differently below.
Results interpretation: agree unless noted differently below.
Focused HPI: 50-year-old female with a past medical history as noted presents to the emergency department with her for evaluation of speech difficulties in the setting of recent change in behavior. Patient apparently has a history of severe
anxiety, PTSD and depression. She is on multiple different medications including doxepin and high dose of standing Valium. She follows with psychiatrist regularly. Her says that she has been isolating recently due to severe anxiety�he
says that she has trouble sleeping at night and sleeps all day. She has had progressive memory issues. Today has been noted that she was having difficulty speaking. When I asked the patient how she is feeling or why she is here she says 'I cannot
find words.' She has stuttering pressured speech and is able to tell me that she today feels very anxious 'like I am having a heart attack.' She says she was having trouble getting the words out. She denies any headache, vision changes. Denies
focal weakness or numbness.It sounds like she had a similar episode earlier this year and she was seen in the emergency room 'and they found nothing.'
Physical exam: Patient is awake and alert, oriented. Her vital signs are all within normal limits. She has no cardiac rubs gallops or murmurs and her lungs sound generally clear. On neurologic exam her cranial nerves are intact; she does have
some stuttering speech/aphasia but it seems to be somewhat distractible. She has no dysarthria. Motor and sensory is intact proximally and distally in all extremities.
Medical Decision Makin-year-old female presents for evaluation of speech issues in the setting of recent depression/withdrawn behavior. She also says that she has chest discomfort 'like I am having a heart attack.' Vitals and exam are as
above. Initial assessment by nurse practitioner and plan for labs, CTA head and neck to evaluate for SHIP ERECTOR pathology/stroke. After initial assessment by nurse practitioner patient agitated and requesting to leave the hospital she says she wants to
smoke a cigarette and go home. I had a long discussion with patient and her . She certainly has insight�she says that she understands that she is having issues with her speech, she thinks that this is not an acute medical issue and that
'you will not find anything.' She says she would rather go home and sleep. In my judgment she has decisional capacity to refuse care but I was able to convince her to stay in let us do an initial assessment. If she should change her mind I am not
sure we have grounds to hold her against her will however I did explain to her that if he has concerned about her behavior that he could proceed with 302. Will give her some Ativan here as well as a nicotine patch. Monitor closely.
Discharge Plan
Departure
Patient Disposition: Home (Routine Discharge)
Date of Disposition: 07/20/25
Time of Disposition: 22:46
Patient with high blood pressure during this ER visit?: No
Condition: Fair
Covid-19: Not Applicable
Discharge Problem:
Anxiety, Panic attack
Instructions: Anxiety in adults - ED (DC), Panic attack (DC)
Prescriptions:
No Action
zolpidem 10 MG tablet
10 mg PO HS PRN (Reason: insomnia)
multivitamin [Daily Multiple] 1 EACH tablet
1 ea PO DAILY
pantoprazole 40 MG tablet,delayed release (DR/EC)
40 mg PO BID Qty: 14 0RF
cyanocobalamin (vitamin B-12) 1,000 MCG tablet
1,000 mcg PO DAILY Qty: 30 0RF
albuterol sulfate 90 mcg/actuation aerosol powdr breath activated
1 inh inhalation Q4H PRN (Reason: shortness of breath or wheezing) Qty: 1 0RF
levothyroxine 137 mcg Tablet
137 mcg PO DAILY
doxepin 25 mg Capsule
25 mg PO HS
propranolol 10 mg Tablet
10 mg PO QID
diazepam
10 mg PO QID
hydroxyzine HCl
25 mg PO QID PRN (Reason: anxiety)
Referrals:
Allyson Cain, [Family Provider, Family Practice]
Activity Restrictions/Additional Instructions:
Follow-up with your therapist tomorrow as well as your family doctor for reevaluation of your anxiety and symptoms. Return if any worsening of symptoms
Interventions
Interventions:
*Risk Screen - Suicide Last Done: 07/20/25 17:22
*General Assessment Last Done: 07/20/25 22:57
*Neglect/Abuse Screening Last Done: 07/20/25 17:22
*ED- Fall Risk Assessment Last Done: 07/20/25 21:38
*ED COVID-19 Vaccine History Last Done: 07/20/25 21:49
*ED Influenza Vaccine History Last Done: 07/20/25 21:49
*Nursing Disposition Last Done: 07/20/25 22:57
ED- Cardiac Assessment Last Done: 07/20/25 19:12
Discharge Date and Time
Discharge Date/Time: 07/20/25 22:58
Print Language: [email or web address]
[2025-07-20] MEDS: ATIVAN 2 MG IV ×2 (19:07→19:33)
[2025-07-20] MEDS: NSS 1000 IV (19:07)
[2025-07-20 19:20] LABS: Hematocrit 32.5 % (37.0-47.0); Hemoglobin 11.0 g/dL (12.0-16.0); Mean Corp Hgb Conc. 33.8 g/dL (33.0-37.0); Mean Corpuscular Volume 86.9 fL (81.0-99.0); Nucleated Red Blood Cells % 0 %; Platelet Count 299 10^3/uL (130-400); Red Cell Dist. Width 15.1 % (11.5-14.5)
[2025-07-20 19:24] LABS: Urine Character Clear (Clear)
[2025-07-20 19:35] LABS: HCG, Serum Qualitative Screen Negative
[2025-07-20 19:43] LABS: ALT (SGPT) 35 U/L (0-35); AST (SGOT) 41 U/L (14-36); Albumin 3.8 g/dl (3.5-5.0); Alkaline Phosphatase 107 U/L (38-126); Blood Urea Nitrogen 5 mg/dl (7-17); Calcium 8.8 mg/dl (8.4-10.2); Carbon Dioxide 23 mmol/L (22-30); Chloride 106 mmol/L (98-107); Estimated Creatinine Clearance > 125 ml/min; Glucose 77 mg/dl (70-99); Potassium 4.4 mmol/L (3.5-5.1); Sodium 133 mmol/L (135-145); Total Protein 6.5 g/dl (6.3-8.2); eGFR > 60.00
[2025-07-20] MEDS: HALDOL 2.5 MG IV (20:05)
== END 2025-07-20 22:58 | disposition home or self-care (01) ==
LOC: EMR 17:19
PROVIDERS: Nurse Practitioner; EMERGENCY PHYSICIAN Emergency Medicine; FAMILY PHYSICIAN Family Medicine
DX: F41.0 Panic disorder [episodic paroxysmal anxiety] (principal); R07.9 Chest pain, unspecified; E03.9 Hypothyroidism, unspecified; F17.200 Nicotine dependence, unspecified, uncomplicated; Z90.49 Acquired absence of other specified parts of digestive tract
CPT/HCPCS: 96374; 96375; 96376; 96361; 99284; 70496; 70498; 80053; 80306; 80307; 81003; 84443; 84703; 85025; 93005; Q9967